=== PATIENT | male | born 1965 | race Caucasian/White ===

== ENCOUNTER → 2016-08-15 | Outpatient (REF) ==
--- NOTE | 2016-08-15 12:15 | REP ---
Partial lumbar spine series: Three views. History: Degenerative disc disease. No comparison views. Findings: Lumbar vertebral body heights are preserved. Alignment is normal on lateral radiographs. There is a minimal levoconvex curve on the frontal view. Pedicles and posterior elements are intact. There is no evidence of spondylolysis or spondylolisthesis. Sacrum and SI joints are intact. Psoas margins are symmetric. There are degenerative disc changes including narrowing and discogenic spurring at L2-3, L3-4, L4-5 and to some degree at L5-S1. Impression: Diffuse mild to moderate degenerative disc disease changes. Minimal levoconvex curve. Otherwise negative. Signed by Romeo Andrade MD 08/15/2016 12:27 P
== END ==
LOC: M SMT 11:39
PROVIDERS: ATTEND Internal Medicine
DX: Z02.1 Encounter for pre-employment examination (principal)

== ENCOUNTER → 2017-12-11 | Outpatient (REF) | LOC: M SMT 10:33 | DX: M19.012 Primary osteoarthritis, left shoulder (principal); M50.30 Other cervical disc degeneration, unspecified cervical region; M25.712 Osteophyte, left shoulder; M47.812 Spondylosis without myelopathy or radiculopathy, cervical region; I70.0 Atherosclerosis of aorta ==

== ENCOUNTER 2018-06-25 11:34 | Emergency (ER) | payer OTHER ==
[~2018-06-25] VITALS: Ht 185.4 cm; Wt 122.7 kg
[2018-06-25 12:30] LABS: BASO # 0.1 10^3/uL (0.0-0.2); BASO % 1.3 % (0.0-1.0); EOS # 0.2 10^3/uL (0.0-0.50); HEMATOCRIT 38.9 % (42.0-52.0); HEMOGLOBIN 13.2 g/dl (13.5-17.5); LYMPH # 2.1 10^3/uL (1.5-4.5); LYMPH % 40.3 % (24.0-44.0); MEAN CORPUSCULAR HEMOGLOBIN 29.8 pg (27.0-33.0); MEAN CORPUSCULAR HGB CONC 33.9 g/dl (32.0-36.5); MEAN CORPUSCULAR VOLUME 87.8 fl (80.0-96.0); MONO # 0.4 10^3/uL (0.0-0.8); MONO % 7.8 % (0.0-5.0); NEUTROPHILS # 2.5 10^3/uL (1.8-7.7); NEUTROPHILS % 47.4 % (36.0-66.0); PLATELET COUNT, AUTOMATED 137 10^3/uL (150-450); RED BLOOD COUNT 4.43 10^6/uL (4.30-6.10); WHITE BLOOD COUNT 5.3 10^3/uL (4.0-10.0)
[2018-06-25 13:05] LABS: ALBUMIN 3.9 GM/DL (3.2-5.2); ALT/SGPT 102 U/L (12-78); BILIRUBIN,DIRECT 0.2 MG/DL (0.0-0.2); BILIRUBIN,TOTAL 0.6 MG/DL (0.2-1.0); BLOOD UREA NITROGEN 15 MG/DL (7-18); CALCIUM LEVEL 8.8 MG/DL (8.5-10.1); CARBON DIOXIDE LEVEL 29 MEQ/L (21-32); CHLORIDE LEVEL 103 MEQ/L (98-107); CPK CREATINE PHOSPHOKINASE 129 U/L (39-308); CREATININE FOR GFR 0.89 MG/DL (0.70-1.30); FREE T4 1.31 NG/DL (0.76-1.46); GLOMERULAR FILTRATION RATE > 60.0 (>56); GLUCOSE, FASTING 99 MG/DL (70-100); LIPASE 119 U/L (73-393); MB/CK RELATIVE INDEX 1.24 (< OR =4); POTASSIUM SERUM 4.7 MEQ/L (3.5-5.1); SODIUM LEVEL 137 MEQ/L (136-145); TOTAL PROTEIN 7.2 GM/DL (6.4-8.2); TROPONIN I < 0.02 NG/ML (< 0.10)
[2018-06-25] MEDS ORDERED: KETOROLAC 30 MG/ML VIAL (J1885) IV ONE (13:15)
[2018-06-25] MEDS ORDERED: predniSONE 20 MG TAB PO ONE (13:15)
[2018-06-25] MEDS ORDERED: IPRATROPIUM 0.5MG/ALBUTEROL 2.5MG INH SOL UD 3ML (DUONEB)(J7620) NEB ONE (13:15)
--- NOTE | 2018-06-25 13:48 | REP ---
PORTABLE CHEST X-RAY: Single view. HISTORY: Chest pain. No comparison chest x-rays. FINDINGS: Left hemidiaphragm is somewhat elevated and there appears to be discoid atelectasis in the left lower lobe superimposed on the diaphragm. No pleural effusion is evident. The left lung is otherwise clear. The right lung is clear. Right pleural angles are sharp. Heart is not enlarged. IMPRESSION: Elevated left hemidiaphragm and discoid atelectasis in the left base. Otherwise, no acute disease. Oxygen delivery tubing and EKG electrodes are seen. Electronically Signed by Romeo Andrade MD 06/25/2018 03:03 P
[2018-06-25] MEDS ORDERED: IBUP-1114 PO (15:08)
[2018-06-25] MEDS ORDERED: PRED20TA PO (15:08)
[2018-06-25] MEDS ORDERED: ALBU17IN2 INH (15:08)
[2018-06-25 15:28] VITALS: BP 132/82
--- NOTE | 2018-06-25 19:58 | ECGEPIP ---
Stationary ECG Study [facility] - ED Test Date: 2018-06-25 Pat Name: RAIMUNDO BENAVIDEZ Department: Room: - Gender: M Information Scientist: harvinder : 1965 Requested By: Gi Fung Order Number: [id number] Reading MD: [place] Fermin Measurements Intervals [place] Rate: 57 P: 62 IN: 175 QRS: 19 QRSD: 98 T: 48 QT: 435 QTc: 426 Interpretive Statements SINUS BRADYCARDIA BENIGN EARLY REPOLARIZATION NO PRIORS FOR COMPARISON Electronically Signed On 06-25-2018 19:57:40 EDT by New Fermin
== END 2018-06-25 15:33 | disposition home or self-care (01) ==
LOC: M ED 11:34 → EDBD 11:34 → M ED 15:33
DX: J98.01 Acute bronchospasm (principal); R00.1 Bradycardia, unspecified; E03.9 Hypothyroidism, unspecified; I10 Essential (primary) hypertension; Z86.19 Personal history of other infectious and parasitic diseases; Z72.0 Tobacco use
CPT/HCPCS: 71045; 80048; 80076; 82550; 82553; 83690; 84439; 84443; 85025; 93005; 93041; 94640; 94760; 96374; 99284; J1885

== ENCOUNTER → 2018-11-14 | Outpatient (REF) | payer OTHER ==
[~2018-11-14] MED LIST: AMLO10TA5; CITA20TA6 PO; GABA-1171 PO; IBUP-1114 PO; LAMO150T3 PO; LEVO100T5 PO; NICO21PAT TD; OMEP-218 PO; PRED20TA PO; PROP20TA72 PO; PROV108A INH; SUBO8MIS SL
[2018-11-14 12:58] LABS: BASO # 0.1 10^3/uL (0.0-0.2); BASO % 1.6 % (0.0-1.0); EOS # 0.2 10^3/uL (0.0-0.50); EOS % 3.2 % (0.0-3.0); HEMATOCRIT 44.1 % (42.0-52.0); HEMOGLOBIN 14.9 g/dl (13.5-17.5); LYMPH # 2.9 10^3/uL (1.5-4.5); LYMPH % 57.8 % (24.0-44.0); MEAN CORPUSCULAR HEMOGLOBIN 30.3 pg (27.0-33.0); MEAN CORPUSCULAR HGB CONC 33.8 g/dl (32.0-36.5); MEAN CORPUSCULAR VOLUME 89.8 fl (80.0-96.0); MONO # 0.4 10^3/uL (0.0-0.8); MONO % 8.6 % (0.0-5.0); NEUTROPHILS # 1.4 10^3/uL (1.8-7.7); NEUTROPHILS % 28.6 % (36.0-66.0); PLATELET COUNT, AUTOMATED 151 10^3/uL (150-450); RED BLOOD COUNT 4.91 10^6/uL (4.30-6.10)
[2018-11-14 13:34] LABS: ALBUMIN 3.9 GM/DL (3.2-5.2); ALT/SGPT 81 U/L (12-78); BILIRUBIN,TOTAL 0.5 MG/DL (0.2-1.0); BLOOD UREA NITROGEN 14 MG/DL (7-18); CALCIUM LEVEL 9.5 MG/DL (8.5-10.1); CARBON DIOXIDE LEVEL 29 MEQ/L (21-32); CHLORIDE LEVEL 105 MEQ/L (98-107); CHOLESTEROL LEVEL 86 MG/DL (<200); CHOLESTEROL RISK RATIO 2.687 (<5); CREATININE FOR GFR 0.99 MG/DL (0.70-1.30); FREE T4 1.22 NG/DL (0.76-1.46); GLOMERULAR FILTRATION RATE > 60.0 (>56); GLUCOSE, FASTING 84 MG/DL (70-100); HDL CHOLESTEROL 32 MG/DL (>40); LDL CHOLESTEROL 44 MG/DL (<100); NON-HDL-C 54 MG/DL; POTASSIUM SERUM 4.5 MEQ/L (3.5-5.1); SODIUM LEVEL 142 MEQ/L (136-145); TOTAL PROTEIN 7.2 GM/DL (6.4-8.2); TRIGLYCERIDES LEVEL 50 MG/DL (<150)
[2018-11-14 14:08] LABS: HEMOGLOBIN A1c 5.6 %
[2018-11-14 16:43] LABS: TOTAL 25(OH) VITAMIN D 27.2 NG/ML (30.0-100.0)
== END ==
LOC: M LAB REF 12:28
PROVIDERS: ATTEND Family Medicine
DX: Z13.228 Encounter for screening for other metabolic disorders (principal); Z12.5 Encounter for screening for malignant neoplasm of prostate

== ENCOUNTER 2018-12-20 11:19 | Inpatient (IN) | payer MEDICAID, OTHER ==
[~2018-12-20] VITALS: Ht 185.4 cm; Wt 101.3 kg
[2018-12-20] MEDS: NICOTINE 21MG/24HR 1 EA TRANSDERMAL TD SCH (09:00)
[~2018-12-20 11:19] MED LIST changes: -AMLO10TA5; -CITA20TA6 PO; -GABA-1171 PO; -LAMO150T3 PO; -LEVO100T5 PO; -NICO21PAT TD; -OMEP-218 PO; -PROP20TA72 PO; -SUBO8MIS SL
[2018-12-20] MEDS ORDERED: LEVO100T5 PO (11:51)
[2018-12-20] MEDS ORDERED: LAMO150T2 PO (11:51)
[2018-12-20] MEDS ORDERED: AMLO10TA5 (11:51)
[2018-12-20] MEDS ORDERED: CITA20TA6 PO (11:51)
[2018-12-20] MEDS ORDERED: GABA-1171 PO (11:51)
[2018-12-20] MEDS ORDERED: SUBO8MIS SL (11:51)
[2018-12-20] MEDS ORDERED: PROP20TA72 PO (11:51)
[2018-12-20] MEDS ORDERED: OMEP-218 PO (11:51)
[2018-12-20 11:52] LABS: HEMATOCRIT 38.8 % (42.0-52.0); HEMOGLOBIN 13.7 g/dl (13.5-17.5); MEAN CORPUSCULAR HEMOGLOBIN 30.6 pg (27.0-33.0); MEAN CORPUSCULAR HGB CONC 35.3 g/dl (32.0-36.5); MEAN CORPUSCULAR VOLUME 86.6 fl (80.0-96.0); PLATELET COUNT, AUTOMATED 146 10^3/uL (150-450); RED BLOOD COUNT 4.48 10^6/uL (4.30-6.10)
[2018-12-20 12:38] LABS: ACETAMINOPHEN LEVEL < 2.0 UG/ML (10.0-30.0); ALBUMIN 4.1 GM/DL (3.2-5.2); ALT/SGPT 72 U/L (12-78); BILIRUBIN,DIRECT 0.5 MG/DL (0.0-0.2); BILIRUBIN,TOTAL 1.4 MG/DL (0.2-1.0); BLOOD UREA NITROGEN 18 MG/DL (7-18); CALCIUM LEVEL 9.3 MG/DL (8.5-10.1); CARBON DIOXIDE LEVEL 26 MEQ/L (21-32); CHLORIDE LEVEL 99 MEQ/L (98-107); CREATININE FOR GFR 1.01 MG/DL (0.70-1.30); ETHYL ALCOHOL (ETHANOL) < 0.003 % (0.000-0.010); GLOMERULAR FILTRATION RATE > 60.0 (>56); GLUCOSE, FASTING 78 MG/DL (70-100); POTASSIUM SERUM 3.9 MEQ/L (3.5-5.1); SALICYLATE LEVEL 2.2 MG/DL (5.0-30.0); SODIUM LEVEL 135 MEQ/L (136-145); THYROID STIMULATING HORMONE 0.681 uIU/ML (0.358-3.740); TOTAL PROTEIN 7.7 GM/DL (6.4-8.2)
[2018-12-20 13:45] LABS: AMPHETAMINES LEVEL URINE POSITIVE (NEGATIVE); BARBITURATES URINE NEGATIVE (NEGATIVE); BENZODIAZEPINES URINE NEGATIVE (NEGATIVE); CANNABINOIDS URINE NEGATIVE (NEGATIVE); COCAINE METABOLITE URINE NEGATIVE (NEGATIVE); METHADONE URINE NEGATIVE (NEGATIVE); OPIATES URINE NEGATIVE (NEGATIVE); PHENCYCLIDINE URINE NEGATIVE (NEGATIVE)
[2018-12-20] MEDS ORDERED: OLANZapine 5 MG TAB PO PRN (15:15)
[2018-12-20] MEDS ORDERED: MAALOX 30 ML SUSP *UDC PO PRN (15:15)
[2018-12-20] MEDS ORDERED: traZODone 50 MG TAB PO PRN (15:15)
[2018-12-20] MEDS ORDERED: ACETAMINOPHEN TAB 650MG DOSE (2X325MG) PO PRN (15:15)
[2018-12-20] MEDS ORDERED: MOM 30ML SUSPENSION UDC PO PRN (15:15)
[2018-12-20 15:55] VITALS: BP 155/80
[2018-12-20] MEDS ORDERED: IBUPROFEN 400 MG TAB PO PRN (17:00)
[2018-12-20] MEDS: PROPRANOLOL 20 MG TAB PO SCH ×2 (17:34→21:00)
[2018-12-20] MEDS: CitaloPRAM (CeleXA) 10 MG TABLET PO SCH (17:35)
[2018-12-20] MEDS ORDERED: BUPRENORPHINE/NALOXONE 8-2MG SUBLINGUAL TABLET(SUBOXONE) SL ONE (18:00)
[2018-12-20] MEDS: lamoTRIgine 100MG TAB PO SCH (22:10)
[2018-12-20] MEDS: PILL CUTTER 1 EACH XX PRN (22:10)
[2018-12-20] MEDS: GABAPENTIN 100 MG CAP PO SCH (22:12)
[2018-12-21] MEDS: LEVOTHYROXINE 100MCG TABLET (0.1MG) PO SCH (06:05)
[2018-12-21 06:33] VITALS: BP 134/79
[2018-12-21] MEDS: NICOTINE 21MG/24HR 1 EA TRANSDERMAL TD SCH (09:00)
[2018-12-21] MEDS: PILL CUTTER 1 EACH XX PRN ×2 (09:25→21:16)
[2018-12-21] MEDS: lamoTRIgine 100MG TAB PO SCH ×2 (09:25→21:15)
[2018-12-21] MEDS: CitaloPRAM (CeleXA) 10 MG TABLET PO SCH (09:26)
[2018-12-21] MEDS: PROPRANOLOL 20 MG TAB PO SCH ×3 (09:26→22:12)
[2018-12-21] MEDS: OMEPRAZOLE 20 MG CAP PO SCH (09:26)
[2018-12-21] MEDS: GABAPENTIN 100 MG CAP PO SCH ×3 (09:27→21:13)
[2018-12-21] MEDS: BUPRENORPHINE/NALOXONE 8-2MG SUBLINGUAL TABLET(SUBOXONE) SL SCH ×2 (09:28→21:16)
--- NOTE | 2018-12-21 13:07 | HPEPDOC ---
General Date of Admission Dec 20, 2018 at 15:05 Date of Service: Dec 21, 2018 Attending Physician: CHRISTIAN DALEY MD Chief Complaint The patient is a 53-year-old male admitted with a reason for visit of Unspecified Psychotic Disorder. Source: Patient Exam Limitations: No limitations Timing/Duration: Other (not applicable) Severity: Other (not applicable) Associated Symptoms: Other (not applicable) History of Present Illness 53 years old white male with past medical history of hypertension, history of crystal male IV drug abuse was admitted when he started cereal hallucinations after shooting crystal meth. Patient is not suicidal or homicidal. Patient co mplaining of constipation and back pain after sleeping on his bed. Home Medications Scheduled Buprenorphine HCl/Naloxone HCl (Suboxone 8 mg-2 mg Sl Film) 1 Each Film, 1 FILM SL BID, (Reported) Citalopram Hydrobromide (Citalopram HBr) 20 Mg Tablet, 30 MG PO DAILY, (Reported) Gabapentin (Gabapentin) 100 Mg Capsule, 100 MG PO TID, (Reported) Lamotrigine (Lamotrigine) 150 Mg Tablet, 150 MG PO BID, (Reported) Levothyroxine Sodium (Levothyroxine Sodium) 100 Mcg Tablet, 100 MCG PO DAILY, (Reported) Omeprazole (Omeprazole) 20 Mg Capsule.dr, 20 MG PO DAILY, (Reported) Propranolol HCl (Propranolol HCl) 20 Mg Tablet, 20 MG PO TID, (Reported) Allergies Coded Allergies: No Known Allergies (Unverified , 06/25/18) Past Medical History Medical History Constipation, colonic polyps, hypertension Surgical History Tibial fracture with regla placement and rib surgery Family History Significant Family History: Other (. Breast cancer and leukemia on maternal side) Social History * Smoker: current smoker, less than 1 pack/day Alcohol: Denies Drugs: other (crystal met) A-FIB/CHADSVASC A-FIB History Current/History of A-Fib/PAF?: No Review of Systems Constitutional: Denies: Chills, Fever, Malaise, Night Sweats, Weakness, Fatigue, Weight Loss, Lethargy, Other Eyes: Denies: Pain, Vision change, Conjunctivae inflammation, Eyelid inflammation, Redness, Other ENT: Denies: Head Aches, Ear Pain, Dysphagia, Sinus Congestion, Post Nasal Drip, Sore Throat, Epistaxis, Other Symptoms Skin: Denies: Rash, Lesions, Jaundice, Bruising, Itching, Dry, Breakdown, Nail Changes, Other Pulmonary: Denies: Dyspnea, Cough, Pleuritic Chest Pain, Other Symptoms Cardiovascular: Denies: Chest Pain, Palpitations, Orthopnea, Paroxysmal Noc. Dyspnea, Edema, Lt Headedness, Other Symptoms Gastrointestinal: Reports: Constipation Genitourinary: Denies: Dysuria, Frequency, Incontinence, Hematuria, Retention, Other Symptoms Hematologic: Denies: Bruising, Bleeding Excessively, Petecchia, Purpura, Enlarged Lymph Nodes, Other Hematologic Endocrine: Denies: Polydipsia, Polyphagia, Polyuria, Heat Intolerance, Cold I ntolerance, Other Endocrine Sx Musculoskeletal: Reports: Back Pain Neurological: Denies: Weakness, Numbness, Incoordination, Change in speech, Confusion, Seizures, Other Symptoms Psych: Denies: Mood Normal, Anxiety, Depression, Memory Issues, Thoughts of Self Harm, Anger, Thoughts of Harming Other, Other Psych Physical Examination General Exam: Positive: Alert, Cooperative Eye Exam: Positive: PERRLA, Conjunctiva & lids normal ENT Exam: Positive: Atraumatic, Mucous membr. moist/pink Neck Exam: Positive: Supple Chest Exam: Positive: Clear to auscultation, Normal air movement Heart Exam: Positive: Rate Normal, Normal S1, Normal S2 Abdomen Exam: Positive: Normal bowel sounds, Soft Extremity Exam: Positive: Normal pulses Skin Exam: Positive: Nl turgor and temperature Neuro Exam: Positive: Normal Gait, Strength at 5/5 X4 ext, Sensation Intact Psych Exam: Positive: Mental status NL, Mood NL, Oriented x 3 Vital Signs Vital Signs Date Time Temp Pulse Resp B/P (MAP) Pulse Ox O2 Delivery O2 Flow Rate FiO2 12/21/18 09:26 65 121/63 12/21/18 06:33 97.3 14 12/20/18 15:55 94 12/20/18 15:09 Room Air Problems (1) HTN (hypertension) Status: Chronic Response to Treatment: Stable Problem Text: Patient. Blood pressure under well control Continue propranolol as per orders Low salt diet Complaince Counseling done (2) Constipation Status: Chronic Problem Text: Secondary to opioid and Suboxone Will aid, MiraLAX by mouth daily If constipation doesn't resolve, then we will add Relistor 12 mg subcutaneous daily (3) Psychosis Status: Acute Problem Text: Secondary to IV drug abuse Psych meds as per psychiatry Individual and group counseling Plan / VTE VTE Prophylaxis Ordered?: No VTE Exclusion Mechanical Proph: Low Risk for VTE VTE Exclusion Pharmacological: At Low Risk for VTE CHRISTIAN DALEY MD Dec 21, 2018 13:07
[2018-12-21] MEDS: MIRALAX *UNIT DOSE* 17GM PACKET PO SCH (14:03)
[2018-12-21] MEDS: IBUPROFEN 600 MG TAB PO PRN (14:38)
[2018-12-21 16:19] VITALS: BP 118/68
[2018-12-22] MEDS: LEVOTHYROXINE 100MCG TABLET (0.1MG) PO SCH (06:39)
[2018-12-22 06:44] VITALS: BP 135/79
--- NOTE | 2018-12-22 08:08 | MHHPE ---
DATE OF ADMISSION: 12/20/2018 VITAL SIGNS: Blood pressure 121/63, pulse 65, temperature 97.3. CHIEF COMPLAINT: Says feels better. SUBJECTIVE: He is 53 years old, from his , unsure if he is , says has children, but he did not elaborate. He is seen in the presence of staff. He was brought here, [facility] ([facility]), has been there about six months or so, and prior to that was living in [facility] apparently. He says he has had difficulties the last few days because of taking crystal meth, and that his was visiting him from [facility]. He suggest that she provided the meth, later hints that she may have had people with her who supplied him with it. He says does not use meth, and that if so, not much, but that this was a large amount. Says what he experienced later was some major realities and some not. He did not elaborate, but suggested that he was hallucinating when using the meth. Says otherwise has been doing well, and that moods have been okay. Says sleep is okay. The ER note indicates he was brought in by police, after a pickup order, as he was thought to be delusional, psychotic. He was convinced he had stabbed and killed over 50 people the previous night and was not sure where the bodies had gone. He also broke quite a few things in his apartment. He is on lamotrigine at 150 mg daily, Celexa 20 mg daily, levothyroxine 100 mcg daily, gabapentin 100 mg three times a day, omeprazole 20 mg daily, propranolol 20 mg three times a day, and buprenorphine/naloxone (Suboxone 8 mg-2 mg) which he takes twice a day. Says has been on the Suboxone for the last few months, and gets it from a clinician in [place], who he sees every month or so. The patient is not a very reliable as a historian, so that needs to be taken into consideration. PAST PSYCHIATRIC HISTORY: Says he sees a psychiatrist locally. He did not go into details, but the chart suggests that he has had previous hospitalizations in [facility]. MEDICAL HISTORY: He is treated for underactive thyroid. MEDICATIONS: Please see above. SUBSTANCE ABUSE HISTORY: As indicated above, recently used meth intravenously. Says he used to be addicted to opiates in the past. SOCIAL HISTORY: from his , says they have been together for more than 20 years. Has a few children, and he did not go into details. Says his family is not much in touch with him. He has been living at [facility] recently. Does say he has had concussion. MENTAL STATUS EXAMINATION: Fairly neat. He is cooperative. Mild agitation. No psychomotor retardation. Somewhat tangential in thought at present. Affect is restricted but reactive. Denies any thoughts of harming himself. No overt delusions elicited at this point, does not appear internally preoccupied. He is alert and oriented. Judgment and insight are compromised. 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 Amphetamine use disorder. Opiate use disorder by history. It should be noted that urine toxicology was positive for amphetamines. PLAN: He is admitted to the inpatient psychiatry unit, placed on relevant precautions. We will look at obtaining collateral information. Meanwhile will continue with his current medication regimen, will make adjustments as necessary, will encourage him to participate in activities on the unit. He has been seen by the hospitalist, whose input is appreciated. He is to be discharged with followup once he is stable. I anticipate a 5-7 day stay. The assessment took 45 minutes.
[2018-12-22] MEDS: NICOTINE 21MG/24HR 1 EA TRANSDERMAL TD SCH (09:00)
[2018-12-22] MEDS: PILL CUTTER 1 EACH XX PRN ×2 (09:33→21:00)
[2018-12-22] MEDS: BUPRENORPHINE/NALOXONE 8-2MG SUBLINGUAL TABLET(SUBOXONE) SL SCH ×2 (09:34→21:01)
[2018-12-22] MEDS: MIRALAX *UNIT DOSE* 17GM PACKET PO SCH (09:34)
[2018-12-22] MEDS: lamoTRIgine 100MG TAB PO SCH ×2 (09:34→20:59)
[2018-12-22] MEDS: CitaloPRAM (CeleXA) 10 MG TABLET PO SCH (09:34)
[2018-12-22] MEDS: OMEPRAZOLE 20 MG CAP PO SCH (09:34)
[2018-12-22] MEDS: GABAPENTIN 100 MG CAP PO SCH ×3 (09:34→21:00)
[2018-12-22] MEDS: PROPRANOLOL 20 MG TAB PO SCH ×3 (09:35→21:01)
[2018-12-22] MEDS: IBUPROFEN 600 MG TAB PO PRN ×2 (09:52→21:00)
--- NOTE | 2018-12-22 14:38 | MHIPN ---
DATE: 12/22/2018 CHIEF COMPLAINT: Says feels okay. SUBJECTIVE: Seen for followup. Indicates feels okay and says wants to reassure everyone that he is fine, that his back hurts a bit, and that he has had "too much meth" just prior to hospitalization. Suggests that is the reason for the hospitalization. MENTAL STATUS EXAMINATION: He is lying in bed, cooperative, appears a bit tired. No agitation. No psychomotor retardation. He is coherent. Affect is restricted, but reactive. Denies any suicidal thoughts or intents. Denies any homicidal ideas or intents. No overt evidence of psychosis given this exam. No overt delusions are elicited. Judgment and insight compromised. ASSESSMENT: 1. Schizophrenia spectrum and other psychotic disorders. 2. Rule out amphetamine-induced psychotic disorder. 3. Amphetamine use disorder. 4. Opioid use disorder by history. PLAN: Continue current care, observations, obtain collateral information, encourage participation in activities in the unit. He will been seeing the treatment team tomorrow and further recommendations will be made. VITAL SIGNS: Blood pressure 131/61, pulse 66, temperature 98.
[2018-12-22 16:05] VITALS: BP 108/62
[2018-12-23] MEDS: LEVOTHYROXINE 100MCG TABLET (0.1MG) PO SCH (06:01)
[2018-12-23 06:27] VITALS: BP 133/84
[2018-12-23] MEDS: lamoTRIgine 100MG TAB PO SCH ×2 (09:00→21:25)
[2018-12-23] MEDS: CitaloPRAM (CeleXA) 10 MG TABLET PO SCH (09:00)
[2018-12-23] MEDS: OMEPRAZOLE 20 MG CAP PO SCH (09:00)
[2018-12-23] MEDS: MIRALAX *UNIT DOSE* 17GM PACKET PO SCH (09:00)
[2018-12-23] MEDS: NICOTINE 21MG/24HR 1 EA TRANSDERMAL TD SCH (09:00)
[2018-12-23] MEDS: BUPRENORPHINE/NALOXONE 8-2MG SUBLINGUAL TABLET(SUBOXONE) SL SCH ×2 (09:00→21:25)
[2018-12-23] MEDS: GABAPENTIN 100 MG CAP PO SCH ×3 (09:00→21:25)
[2018-12-23] MEDS: PROPRANOLOL 20 MG TAB PO SCH ×3 (09:01→21:28)
--- NOTE | 2018-12-23 09:58 | MHIPNPDOC ---
[facility] Progress Note Progress Note Date of Service: 12/23/2017 History of Present Illness Patient, a 53-year-old man with a history of significant methamphetamine use disorder, presents in a psychotic state. He is treated on the inpatient unit, made significant improvements without significant medication changes. He reports using methamphetamine and had become fairly distorted. He is treated on the inpatient unit with good success. He lives at [facility], however will need to be reassigned as he has lost his apartment. Interval History Patient is met with today. He reports he is feeling good. He describes he does have some constipation, but declines any other symptoms other than some mild fatigue. He reports that otherwise he is doing well. His depression and psychosis have resolved and he feels clear and ready for discharge tomorrow to [facility]. No major problems on the unit overnight. Has attended groups at times. Reports that his motivation and sleep have improved since he had come. Review Of Systems General: Denies fever or weight changes Cardiovascular: Denies chest pain or palpitations GI: Denies nausea, vomiting, or diarrhea Respiratory: Denies shortness of breath or cough Neuro: Denies dizziness, tremors Derm: Denies any rashes or pruritus : Denies any dysuria or sexual dysfunction MSK: Denies any muscle tightness or stiffness HEENT: Denies any headaches Psychotherapy None on this visit. Vital Signs Reviewed. Mental Status Examination General: Fair hygiene Speech: Spontaneous and fluid Thought processes: Linear and logical MSK: Smooth and coordinated gait, no signs of tremors or involuntary orofacial movements Thought content: Future orientated Abstract reasoning, and computation: Intact Description of associations: Intact Description of abnormal or psychotic thoughts: Denies any suicidal or homicidal ideation. Denies any auditory or visual hallucinations. Does not appear to be responding to internal stimuli. Does not appear to be endorsing any bizarre or paranoid ideation. Judgment: fair Insight: fair Orientation: Alert and orientated 3 Cognition: Grossly normal Recent and remote memory: Intact Attention span and concentration: Intact Fund of knowledge: Adequate Mood: "okay" Affect: Euthymic with a full range Diagnoses Unspecified psychosis. Methamphetamine use disorder. Assessment and Plan Continue medications as below. Prescribed docusate for constipation as milk of magnesia is not helpful. Discharge tomorrow to [facility]. Disposition Discharge tomorrow after meeting with [facility]. Time Spent 15 minutes [id number]. Eddie [place]'s Notes Vital Signs Vital Signs Date Time Temp Pulse Resp B/P (MAP) Pulse Ox O2 Delivery O2 Flow Rate FiO2 12/23/18 09:01 60 130/69 12/23/18 06:27 98.9 14 12/20/18 15:55 94 12/20/18 15:09 Room Air Current Medications Current Medications Medications (Trade) Dose Ordered Sig/Katina Route PRN Reason Start Time Stop Time Status Last Admin Dose Admin Acetaminophen (Tylenol Tab) 650 mg Q6HP PRN PO HEADACHE or DISCOMFORT 12/20/18 15:15 Cancel Al Hydrox/Mg Hydrox/Simethicone (Mylanta) 30 ml Q4HP PRN PO HEARTBURN/INDIGESTION 12/20/18 15:15 Buprenorphine/ Naloxone (Suboxone 8/2mg) 1 tab BID SL 12/21/18 09:00 12/27/18 09:00 12/23/18 09:00 Citalopram Hydrobromide (CeleXA) 30 mg DAILY PO 12/20/18 09:00 12/23/18 09:00 Gabapentin (Neurontin) 100 mg TID PO 12/20/18 21:00 12/23/18 09:00 Home Med (Med Rec Complete!) ASDIRECTED XX 12/20/18 15:15 12/20/18 15:15 DC Ibuprofen (Advil) 400 mg Q6HP PRN PO PAIN 12/20/18 17:00 12/21/18 13:01 DC 12/21/18 06:52 Ibuprofen (Advil) 600 mg Q6HP PRN PO PAIN 12/21/18 13:00 12/22/18 21:00 Lamotrigine (LaMICtal) 150 mg BID PO 12/20/18 21:00 12/23/18 09:00 Levothyroxine Sodium (Synthroid) 100 mcg DAILY@06 PO 12/21/18 06:00 12/23/18 06:01 Magnesium Hydroxide (Milk Of Magnesia) 30 ml DAILYPRN PRN PO CONSTIPATION 12/20/18 15:15 Nicotine (Nicoderm Cq 21mg) 1 patch DAILY TD 12/20/18 09:00 Olanzapine (ZyPREXA) 5 mg Q4HP PRN PO AGITATION 12/20/18 15:15 Omeprazole (PriLOSEC) 20 mg DAILY PO 12/21/18 09:00 12/23/18 09:00 Polyethylene Glycol (Miralax) 1 pkt DAILY PO 12/21/18 14:00 12/23/18 09:00 Propranolol HCl (Inderal) 20 mg TID PO 12/20/18 16:00 12/23/18 09:01 Trazodone HCl (Desyrel) 50 mg QHSP PRN PO INSOMNIA 12/20/18 15:15 Allergies Coded Allergies: No Known Allergies (Unverified , 06/25/18) NABEEL MARINELLI DO Dec 23, 2018 09:58
[2018-12-23] MEDS ORDERED: NICO21PAT TD (11:21)
[2018-12-23] MEDS ORDERED: DOCUSATE SODIUM 100 MG CAP PO PRN (13:45)
[2018-12-23 15:33] VITALS: BP 151/73
[2018-12-23] MEDS: IBUPROFEN 600 MG TAB PO PRN (17:48)
[2018-12-24] MEDS: LEVOTHYROXINE 100MCG TABLET (0.1MG) PO SCH (05:36)
[2018-12-24 06:19] VITALS: BP 152/84
[2018-12-24] MEDS: NICOTINE 21MG/24HR 1 EA TRANSDERMAL TD SCH (09:00)
--- NOTE | 2018-12-24 09:25 | MHDSPDOC ---
[facility] Discharge Summary Discharge Summary DATE OF ADMISSION: Dec 20, 2018 at 15:05 DATE OF DISCHARGE: 12/24/18 Date of Service: 12/24/2018 Diagnoses Unspecified psychosis. Methamphetamine use disorder. History of Present Illness Patient, a 53-year-old man with a history of significant methamphetamine use disorder, presents in a psychotic state. He is treated on the inpatient unit, made significant improvements without significant medication changes. He reports using methamphetamine and had become fairly distorted. He is treated on the inpatient unit with good success. He lives at [facility], however will need to be reassigned as he has lost his apartment. Consultants Involved Hospitalist/PCP screening Treatment and Progress On The Unit The patient was admitted to the unit and without major medication changes resolved his psychosis. Pprecipitously over several days, he had noted that he had been using methamphetamine and that he had had difficulty with unusual and bizarre thoughts. After he had cleared, he requested to leave and on the day of discharge, did not meet involuntary criteria as he was not suicidal or homicidal, was not demonstrating signs or symptoms of psychosis or repairing mental health conditions, was able to attend to his needs on the unit and declined further voluntary admission and thus was discharged after meeting with [facility] who will be reassigning his living arrangements. Discharge Assessment 53-year-old man with a history of methamphetamine use, who presented in a psychotic state, he resolved without significant medication change likely due to intoxication with methamphetamine. He does reportedly have an underlying history of bipolar disorder, however, is not clear whether this is continuous, but it was likely not a contributing part to this admission. Mental Status Examination General: Well dressed with good hygiene Speech: Spontaneous and fluid Thought processes: Linear and logical MSK: Smooth and coordinated gait, no signs of tremors or involuntary orofacial movements Thought content: Future orientated Abstract reasoning, and computation: Intact Description of associations: Intact Description of abnormal or psychotic thoughts: Denies any suicidal or homicidal ideation. Denies any auditory or visual hallucinations. Does not appear to be responding to internal stimuli. Does not appear to be endorsing any bizarre or paranoid ideation. Judgment: fair Insight: fair Orientation: Alert and orientated 3 Cognition: Grossly normal Recent and remote memory: Intact Attention span and concentration: Intact Fund of knowledge: Adequate Mood: "okay" Affect: Euthymic with a full range Follow Up The social work team worked during the predischarge meeting in order to evaluate for further issues of lethality address them fully before discharge. They worked on safety planning with the patient's family members in order to ensure that the patient will have a safe and effective discharge. Time Spent The amount of time spent in the coordination of care for this patient was approximately 20 minutes. Sunday Vital Signs/I&Os Vital Signs Date Time Temp Pulse Resp B/P (MAP) Pulse Ox O2 Delivery O2 Flow Rate FiO2 12/24/18 06:19 98.8 55 16 152/84 (106) 12/20/18 15:55 94 12/20/18 15:09 Room Air Medications Scheduled Buprenorphine HCl/Naloxone HCl (Suboxone 8 mg-2 mg Sl Film) 1 Each Film, 1 FILM SL BID, (Reported) Citalopram Hydrobromide (Citalopram HBr) 20 Mg Tablet, 30 MG PO DAILY, (Reported) Gabapentin (Gabapentin) 100 Mg Capsule, 100 MG PO TID, (Reported) Lamotrigine (Lamotrigine) 150 Mg Tablet, 150 MG PO BID, (Reported) Levothyroxine Sodium (Levothyroxine Sodium) 100 Mcg Tablet, 100 MCG PO DAILY, (Reported) Nicotine (Nicotine Patch) 21 Mg Patch.td24, 1 PATCH TD DAILY for tobacco for 30 Days, #30 Omeprazole (Omeprazole) 20 Mg Capsule.dr, 20 MG PO DAILY, (Reported) Propranolol HCl (Propranolol HCl) 20 Mg Tablet, 20 MG PO TID, (Reported) Allergies Coded Allergies: No Known Allergies (Unverified , 06/25/18) NABEEL MARINELLI DO Dec 24, 2018 09:25
[2018-12-24] MEDS: MIRALAX *UNIT DOSE* 17GM PACKET PO SCH (09:42)
[2018-12-24] MEDS: BUPRENORPHINE/NALOXONE 8-2MG SUBLINGUAL TABLET(SUBOXONE) SL SCH (09:43)
[2018-12-24] MEDS: lamoTRIgine 100MG TAB PO SCH (09:43)
[2018-12-24] MEDS: CitaloPRAM (CeleXA) 10 MG TABLET PO SCH (09:44)
[2018-12-24] MEDS: GABAPENTIN 100 MG CAP PO SCH (09:44)
[2018-12-24] MEDS: OMEPRAZOLE 20 MG CAP PO SCH (09:44)
[2018-12-24] MEDS: IBUPROFEN 600 MG TAB PO PRN (09:45)
[2018-12-24 09:48] VITALS: BP 145/75
[2018-12-24] MEDS: PROPRANOLOL 20 MG TAB PO SCH (09:48)
[2018-12-24] MEDS ORDERED: MAGNESIUM CITRATE 300 ML BTL PO ONE (11:00)
== END 2018-12-24 12:55 | disposition home or self-care (01) | DRG 751 ==
LOC: M ED 11:19 → M ED INP 15:05 → M PSY 15:40
PROVIDERS: ADMIT Psychiatry & Neurology Addiction Medicine; ATTEND Psychiatry & Neurology Addiction Medicine
DX: F29 Unspecified psychosis not due to a substance or known physiological condition (principal); F15.10 Other stimulant abuse, uncomplicated; Z79.899 Other long term (current) drug therapy; E03.9 Hypothyroidism, unspecified; Z63.5 Disruption of family by separation and divorce; F11.11 Opioid abuse, in remission; I10 Essential (primary) hypertension; K63.5 Polyp of colon; K59.00 Constipation, unspecified; F17.210 Nicotine dependence, cigarettes, uncomplicated

== ENCOUNTER → 2019-03-10 | Outpatient (REF) | payer OTHER, MEDICAID ==
[~2019-03-10] MED LIST changes: +AMLO10TA5; +CITA20TA6 PO; +GABA-1171 PO; +LAMO150T3 PO; +LEVO100T5 PO; +NICO21PAT TD; +OMEP-218 PO; +PROP20TA72 PO; +SUBO8MIS SL
[2019-03-10 19:39] LABS: HEMOGLOBIN A1c 5.2 %
[2019-03-10 19:43] LABS: ALBUMIN 4.3 GM/DL (3.2-5.2); ALT/SGPT 158 U/L (12-78); BILIRUBIN,TOTAL 0.7 MG/DL (0.2-1.0); BLOOD UREA NITROGEN 27 MG/DL (7-18); CALCIUM LEVEL 9.1 MG/DL (8.5-10.1); CARBON DIOXIDE LEVEL 28 MEQ/L (21-32); CHLORIDE LEVEL 106 MEQ/L (98-107); CREATININE FOR GFR 0.97 MG/DL (0.70-1.30); FREE T4 1.17 NG/DL (0.76-1.46); GLOMERULAR FILTRATION RATE > 60.0 (>56); GLUCOSE, FASTING 103 MG/DL (70-100); POTASSIUM SERUM 5.2 MEQ/L (3.5-5.1); SODIUM LEVEL 140 MEQ/L (136-145)
== END ==
LOC: M LAB REF 18:33
PROVIDERS: ATTEND Family Medicine
DX: R73.03 Prediabetes (principal); E03.8 Other specified hypothyroidism

== ENCOUNTER 2019-05-12 09:18 | Day surgery (SDC) | payer OTHER ==
[~2019-05-12] VITALS: Ht 188 cm; Wt 116.6 kg
[~2019-05-12 09:18] MED LIST changes: +COLA100C5 PO; +NS 1,000 ML IV ONE
[2019-05-12] MEDS ORDERED: propofoL 200 MG/20 ML VIAL As Ordered ONE (10:07)
[2019-05-12] MEDS ORDERED: LIDOCAINE 2% INJ 100 MG/5 ML SDV (FOR ANES.) As Ordered ONE (10:07)
--- NOTE | 2019-05-12 10:30 | ROOR ---
Patient Name: Eddie Romero Procedure Date: 05/12/2019 9:56 AM Date of : 1965 Age: 54 Room: [facility] Gender: Male Note Status: Finalized Procedure: Colonoscopy Indications: Positive fecal immunochemical test Providers: Marcus Chambers MD Referring MD: Tennille RAMÍREZ NP Requesting Provider: Medicines: Monitored Anesthesia Care Complications: No immediate complications. Procedure: Pre-Anesthesia Assessment: - Prior to the procedure, a History and Physical was performed, and patient medications and allergies were reviewed. The patient is competent. The risks and benefits of the procedure and the sedation options and risks were discussed with the patient. All questions were answered and informed consent was obtained. Patient identification and proposed procedure were verified by the physician, the nurse and the anesthesiologist in the procedure room. Mental Status Examination: alert and oriented. Airway Examination: normal oropharyngeal airway and neck mobility. Respiratory Examination: clear to auscultation. CV Examination: normal. Prophylactic Antibiotics: The patient does not require prophylactic antibiotics. Prior Anticoagulants: The patient has taken no previous anticoagulant or antiplatelet agents. ASA Grade Assessment: II - A patient with mild systemic disease. After reviewing the risks and benefits, the patient was deemed in satisfactory condition to undergo the procedure. The anesthesia plan was to use monitored anesthesia care (MAC). Immediately prior to administration of medications, the patient was re-assessed for adequacy to receive sedatives. The heart rate, respiratory rate, oxygen saturations, blood pressure, adequacy of pulmonary ventilation, and response to care were monitored throughout the procedure. The physical status of the patient was re-assessed after the procedure. The Colonoscope was introduced through the anus with the intention of advancing to the cecum. The scope was advanced to the descending colon before the procedure was aborted. Medications were given. The colonoscopy was performed without difficulty. The patient tolerated the procedure well. The quality of the bowel preparation was poor and unsatisfactory. The rectum was photographed. Scope insertion time was 2 minutes. Scope withdrawal time was 2 minutes. The total duration of the procedure was 8 minutes. Findings: The perianal and digital rectal examinations were normal. A large amount of semi-solid solid stool was found from rectum to descending colon, precluding visualization. Lavage of the area was performed using a large amount of sterile water, resulting in incomplete clearance with continued poor visualization. Impression: - Preparation of the colon was poor. - Preparation of the colon was unsatisfactory. - Stool from rectum to descending colon. - No specimens collected. Recommendation: - Patient has a contact number available for emergencies. The signs and symptoms of potential delayed complications were discussed with the patient. Return to normal activities tomorrow. Written discharge instructions were provided to the patient. - High fiber diet. - Continue present medications. - Await pathology results. - Repeat colonoscopy at next available appointment (within 3 months) because the bowel preparation was poor. - Telephone GI clinic to schedule appointment 1 - 2 weeks. Please call GI clinic @ [phone] for apppointment date and time. - Return to primary care physician. Marcus Chambers MD Marcus Chambers MD 05/12/2019 10:30:43 AM Electronically signed by Marcus Chambers MD Number of Addenda: 0 Note Initiated On: 05/12/2019 9:56 AM Estimated Blood Loss: Estimated blood loss: none.
[2019-05-12 10:41] VITALS: BP 102/69
== END 2019-05-12 10:52 | disposition home or self-care (01) ==
LOC: M OPP 09:18
PROVIDERS: ATTEND Internal Medicine Gastroenterology
DX: R19.5 Other fecal abnormalities (principal); G47.30 Sleep apnea, unspecified; F17.210 Nicotine dependence, cigarettes, uncomplicated; Z80.0 Family history of malignant neoplasm of digestive organs; Z79.899 Other long term (current) drug therapy

== ENCOUNTER → 2019-05-21 | Outpatient (REF) | payer OTHER ==
[~2019-05-21] MED LIST changes: -NS 1,000 ML IV ONE
[2019-05-21 17:13] LABS: BASO # 0.1 10^3/uL (0.0-0.2); BASO % 1.4 % (0.0-1.0); EOS # 0.2 10^3/uL (0.0-0.5); EOS % 2.9 % (0.0-3.0); HEMATOCRIT 42.4 % (42.0-52.0); HEMOGLOBIN 14.7 g/dl (13.5-17.5); LYMPH # 2.9 10^3/uL (1.5-5.0); LYMPH % 50.6 % (24.0-44.0); MEAN CORPUSCULAR HEMOGLOBIN 30.1 pg (27.0-33.0); MEAN CORPUSCULAR HGB CONC 34.7 g/dl (32.0-36.5); MEAN CORPUSCULAR VOLUME 86.9 fl (80.0-96.0); MONO # 0.5 10^3/uL (0.0-0.8); NEUTROPHILS # 2.1 10^3/uL (1.5-8.5); NEUTROPHILS % 36.8 % (36.0-66.0); PLATELET COUNT, AUTOMATED 179 10^3/uL (150-450); RED BLOOD COUNT 4.88 10^6/uL (4.30-6.10); WHITE BLOOD COUNT 5.8 10^3/uL (4.0-10.0)
[2019-05-21 17:32] LABS: HEMOGLOBIN A1c 5.9 %
[2019-05-21 17:57] LABS: ALBUMIN 4.1 GM/DL (3.2-5.2); ALT/SGPT 159 U/L (12-78); BILIRUBIN,DIRECT 0.2 MG/DL (0.0-0.2); BILIRUBIN,TOTAL 0.5 MG/DL (0.2-1.0); BLOOD UREA NITROGEN 26 MG/DL (7-18); CALCIUM LEVEL 8.9 MG/DL (8.5-10.1); CARBON DIOXIDE LEVEL 27 MEQ/L (21-32); CHLORIDE LEVEL 109 MEQ/L (98-107); CHOLESTEROL LEVEL 114 MG/DL (<200); CREATININE FOR GFR 1.07 MG/DL (0.70-1.30); GLOMERULAR FILTRATION RATE > 60.0 (>56); GLUCOSE, FASTING 97 MG/DL (70-100); HDL CHOLESTEROL 44 MG/DL (>40); LDL CHOLESTEROL 50 MG/DL (<100); NON-HDL-C 70 MG/DL; POTASSIUM SERUM 4.7 MEQ/L (3.5-5.1); SODIUM LEVEL 140 MEQ/L (136-145); TOTAL 25(OH) VITAMIN D 26.2 NG/ML (30.0-100.0); TOTAL PROTEIN 7.4 GM/DL (6.4-8.2); TRIGLYCERIDES LEVEL 99 MG/DL (<150); VITAMIN B12 LEVEL 526 PG/ML (247-911)
== END ==
LOC: M LABDRAWC 16:37
PROVIDERS: ATTEND Nurse Practitioner Psychiatric/Mental Health
DX: Z51.81 Encounter for therapeutic drug level monitoring (principal); Z79.899 Other long term (current) drug therapy; F31.9 Bipolar disorder, unspecified; Z13.9 Encounter for screening, unspecified

== ENCOUNTER → 2019-05-27 | Outpatient (CLI) | payer OTHER ==
[2019-05-27 10:47] LABS: HEMATOCRIT 39.2 % (42.0-52.0); HEMOGLOBIN 13.5 g/dl (13.5-17.5); MEAN CORPUSCULAR HEMOGLOBIN 29.7 pg (27.0-33.0); MEAN CORPUSCULAR HGB CONC 34.4 g/dl (32.0-36.5); MEAN CORPUSCULAR VOLUME 86.3 fl (80.0-96.0); PLATELET COUNT, AUTOMATED 141 10^3/uL (150-450); RED BLOOD COUNT 4.54 10^6/uL (4.30-6.10); WHITE BLOOD COUNT 4.6 10^3/uL (4.0-10.0)
[2019-05-27 10:56] LABS: INR 1.06; PROTHROMBIN TIME 13.5 SECONDS (11.8-14.0)
[2019-05-27 10:57] LABS: PARTIAL THROMBOPLASTIN TIME 31.8 SECONDS (25.0-38.4)
[2019-05-27 11:09] LABS: ATYPICAL LYMPH 2 % (0-5); BASOPHILS 1 % (0-1); EOSINOPHILS 7 % (0-3); LYMPHOCYTES 46 % (16-44); MONOCYTES 8 % (0-5); NEUTROPHILS 36 % (28-66); PLATELET ESTIMATE NORMAL (NORMAL)
[2019-05-27 11:14] LABS: ALBUMIN 3.9 GM/DL (3.2-5.2); ALT/SGPT 117 U/L (12-78); BILIRUBIN,DIRECT 0.2 MG/DL (0.0-0.2); BILIRUBIN,TOTAL 0.4 MG/DL (0.2-1.0); TOTAL PROTEIN 7.2 GM/DL (6.4-8.2)
[2019-05-28 11:48] LABS: HEPATITIS B SURFACE ANTIBODY NEGATIVE (POSITIVE)
[2019-05-28 12:52] LABS: HEPATITIS B SURFACE ANTIGEN POSITIVE (NEGATIVE); HEPATITIS C VIRUS ABY INDEX > 11.0 INDEX (<0.8)
[2019-05-29 08:06] LABS: ANTI-MITOCHONDRIAL ANTIBODY <20.0 Units (0.0-20.0); ANTI-SMOOTH MUSCLE ANTIBODY 5 Units (0-19); ANTINUCLEAR ANTIBODIES DIRECT Negative (Negative); HEPATITIS A IgG TOTAL Positive (Negative); HEPATITIS B CORE ANTIBODY IGG Positive (Negative); HEPATITIS BE ANTIBODY Positive (Negative); HEPATITIS BE ANTIGEN Negative (Negative); LIVER-KIDNEY MICROSOMAL ABY <20.1 Units (0.0-20.0)
== END ==
LOC: M LAB 09:48
PROVIDERS: ATTEND Internal Medicine Gastroenterology
DX: B18.1 Chronic viral hepatitis B without delta-agent (principal); R94.5 Abnormal results of liver function studies

== ENCOUNTER → 2019-05-27 | Outpatient (REF) | payer OTHER, MEDICAID ==
[2019-05-28 12:28] LABS: HEPATITIS B SURFACE ANTIBODY NEGATIVE (POSITIVE); HIV 1&2 SCREEN CENTAUR NEGATIVE (NEGATIVE)
[2019-05-28 12:31] LABS: HEPATITIS B SURFACE ANTIGEN POSITIVE (NEGATIVE)
[2019-05-30 00:07] LABS: HCV RNA (INTERNATIONAL UNITS) 15489000 IU/mL (.); HEPATITIS A IgG TOTAL Positive (Negative); HEPATITIS B CORE ANTIBODY IGG Positive (Negative); HEPATITIS BE ANTIBODY Positive (Negative); HEPATITIS BE ANTIGEN Negative (Negative); HEPATITIS C QUANTITATION See Final Results IU/mL (.); HEPATITIS C VIRUS GENOTYPE 3 (.)
[2019-06-02 14:08] LABS: HBV <10 IU/mL
== END ==
LOC: M SFHCPLAZ 09:25
PROVIDERS: ATTEND Internal Medicine Infectious Disease
DX: B18.2 Chronic viral hepatitis C (principal)

== ENCOUNTER → 2019-08-21 | Outpatient (CLI) | payer OTHER ==
[~2019-08-21] MED LIST changes: +ADV100INH INH; +FLOM0.4C39 PO; +LEVO88TA3 PO; +OMEP10CASR PO; +SUBO4MIS SL
== END ==
LOC: M LABSMTC 13:07
PROVIDERS: ATTEND Anesthesiology
DX: Z01.818 Encounter for other preprocedural examination (principal); Z11.59 Encounter for screening for other viral diseases

== ENCOUNTER 2019-08-22 07:17 | Day surgery (SDC) | payer OTHER ==
[~2019-08-22] VITALS: Ht 188 cm; Wt 117.9 kg
[2019-08-22] MEDS ORDERED: NS 1,000 ML IV ONE (07:45)
[2019-08-22] MEDS ORDERED: propofoL 200 MG/20 ML VIAL As Ordered ONE ×2 (08:24→09:10)
--- NOTE | 2019-08-22 09:02 | ROOR ---
Patient Name: Eddie Romero Procedure Date: 08/22/2019 8:21 AM Date of : 1965 Age: 54 Room: [facility] Gender: Male Note Status: Finalized Procedure: Colonoscopy Indications: Positive Cologuard test Providers: Marcus Chambers MD Referring MD: Family Practice/Adult section [facility] Requesting Provider: Medicines: Monitored Anesthesia Care Complications: No immediate complications. Procedure: Pre-Anesthesia Assessment: - Prior to the procedure, a History and Physical was performed, and patient medications and allergies were reviewed. The patient is competent. The risks and benefits of the procedure and the sedation options and risks were discussed with the patient. All questions were answered and informed consent was obtained. Patient identification and proposed procedure were verified by the physician, the nurse and the anesthesiologist in the procedure room. Mental Status Examination: alert and oriented. Airway Examination: normal oropharyngeal airway and neck mobility. Respiratory Examination: clear to auscultation. CV Examination: normal. Prophylactic Antibiotics: The patient does not require prophylactic antibiotics. Prior Anticoagulants: The patient has taken no previous anticoagulant or antiplatelet agents. ASA Grade Assessment: III - A patient with severe systemic disease. After reviewing the risks and benefits, the patient was deemed in satisfactory condition to undergo the procedure. The anesthesia plan was to use monitored anesthesia care (MAC). Immediately prior to administration of medications, the patient was re-assessed for adequacy to receive sedatives. The heart rate, respiratory rate, oxygen saturations, blood pressure, adequacy of pulmonary ventilation, and response to care were monitored throughout the procedure. The physical status of the patient was re-assessed after the procedure. The Colonoscope was introduced through the anus and advanced to the terminal ileum, with identification of the appendiceal orifice and IC valve. The colonoscopy was performed without difficulty. The patient tolerated the procedure well. The quality of the bowel preparation was good. The terminal ileum, ileocecal valve, appendiceal orifice, and rectum were photographed. Scope insertion time was 3 minutes. Scope withdrawal time was 9 minutes. The total duration of the procedure was 12 minutes. Findings: The perianal and digital rectal examinations were normal. The terminal ileum appeared normal. Three sessile polyps were found in the transverse colon. The polyps were 3 to 4 mm in size. These polyps were removed with a jumbo cold forceps. Resection and retrieval were complete. Verification of patient identification for the specimen was done by the physician and nurse using the patient's name, date and medical record number. Estimated blood loss was minimal. Non-bleeding external and internal hemorrhoids were found during retroflexion. The hemorrhoids were medium-sized. Impression: - The examined portion of the ileum was normal. - Three 3 to 4 mm polyps in the transverse colon, removed with a jumbo cold forceps. Resected and retrieved. - Non-bleeding external and internal hemorrhoids. Recommendation: - Patient has a contact number available for emergencies. The signs and symptoms of potential delayed complications were discussed with the patient. Return to normal activities tomorrow. Written discharge instructions were provided to the patient. - High fiber diet. - Continue present medications. - Await pathology results. - Repeat colonoscopy in 5-10 years for surveillance of multiple polyps. - Telephone GI clinic for pathology results in 2 weeks. - Return to primary care physician. Marcus Chambers MD Marcus Chambers MD 08/22/2019 9:01:31 AM Electronically signed by Marcus Chambers MD Number of Addenda: 0 Note Initiated On: 08/22/2019 8:21 AM Estimated Blood Loss: Estimated blood loss was minimal.
[2019-08-22 09:25] VITALS: BP 170/77
== END 2019-08-22 09:26 | disposition home or self-care (01) ==
LOC: M OPP 07:17
PROVIDERS: ATTEND Internal Medicine Gastroenterology
DX: K63.5 Polyp of colon (principal); K64.8 Other hemorrhoids; R19.5 Other fecal abnormalities; K74.60 Unspecified cirrhosis of liver; K21.9 Gastro-esophageal reflux disease without esophagitis; F17.210 Nicotine dependence, cigarettes, uncomplicated; Z79.899 Other long term (current) drug therapy

== ENCOUNTER 2019-11-03 20:10 | Emergency (ER) | payer OTHER ==
[~2019-11-03 20:10] MED LIST changes: -AMLO10TA5; +AMLO1TAB25
== END 2019-11-03 20:45 | disposition home or self-care (01) ==
LOC: M ED 20:10
DX: B34.9 Viral infection, unspecified (principal); I10 Essential (primary) hypertension; J44.9 Chronic obstructive pulmonary disease, unspecified; F17.200 Nicotine dependence, unspecified, uncomplicated
CPT/HCPCS: 87081; 99283; U0002

== ENCOUNTER → 2020-12-28 | Outpatient (CLI) | payer OTHER ==
--- NOTE | 2020-12-28 16:26 | REP ---
INDICATION: PAIN COMPARISON: None. TECHNIQUE: AP, lateral, bilateral oblique and sunrise views. FINDINGS: Osseous structures are intact and without evidence for acute fracture or dislocation. There is mild medial joint space narrowing. Lateral and sunrise views demonstrate minimally increased sclerosis along the posterior patellar margin with subtle patellofemoral joint space narrowing. Mild prepatellar swelling. No effusion. IMPRESSION: Presumed age-related degenerative changes by radiographic evaluation. <Electronically signed by Mazin Still > 12/28/20 [id number]
--- NOTE | 2020-12-28 16:31 | REP ---
INDICATION: PAIN COMPARISON: None. TECHNIQUE: AP, lateral, coned-down views of the lumbar spine. FINDINGS: Moderate multilevel degenerative changes include endplate sclerosis, marginal osteophytosis, and minimal disc space narrowing along with facet hypertrophy. No evidence for acute fracture/compression injury or subluxation. IMPRESSION: 1. No acute fracture / compression injury or subluxation. 2. Moderate multilevel degenerative spondylosis. <Electronically signed by Mazin Still > 12/28/20 [id number]
== END ==
LOC: M PLAIMG 14:42
PROVIDERS: ATTEND Internal Medicine
DX: M47.812 Spondylosis without myelopathy or radiculopathy, cervical region (principal); M17.0 Bilateral primary osteoarthritis of knee